=== PATIENT | female | born 1965 | race Caucasian/White ===

== ENCOUNTER 2019-01-03 16:02 | Inpatient (IN) ==
[2019-01-03] MEDS ORDERED: POTASSIUM CHLORIDE 40 MEQ in DEXTROSE 5% IN WATER 500 ML IV ONE (16:08)
--- NOTE | 2019-01-03 16:08 | Emergency Department Note ---
Recheck HPI - General Chief Complaint: Recheck/Abnormal Lab/Rx Stated Complaint: Low potassium Time Seen by Provider: 01/03/19 16:05 Source: patient Mode of arrival: ambulatory Limitations: no limitations - History of Present Illness HPI Narrative: 54-year-old female in ED as advised by ER staff to return due to serum potassium at 2.1. Patient was in earlier with concerns of possible gout flare, but did not want to wait for lab results and was discharged. Patient's potassium returned at 2.1 and she was found and requested to come back in for further treatment. Patient advises she has a poor diet and has multiple episodes of diarrhea. Patient states she is supposed to follow up with GI but is currently out of work and unable to come up with the money to see a specialist. Patient has had a colonoscopy in the past which was unremarkable. Patient states she does have a history of gout and does have flares from time to time. Patient has bilateral lower extremity pain and increased swelling which does cause her discomfort. This is why patient thought her gout was flared. 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 Patient was placed on antibiotic earlier today for bilateral cellulitis/ exacerbated contact dermatitis. complaint: abnormal lab Initial Visit For: cellulitis Returns Today for: called because of abnormal lab/test Description of Abnormal Result: 2.1 potassium Symptoms Since Prior Visit: no new symptoms Context: called for abnormal lab result Associated symptoms: none - Related Data Home Medications Medication Instructions Recorded Confirmed Allopurinol 01/03/19 Previous Rx's Medication Instructions Recorded Amoxicillin 500 mg PO Q12H 10 Days #20 tab 01/03/19 hydrOXYzine [Atarax] 25 mg PO TIDP PRN 10 Days #30 tab 01/03/19 Allergies Allergy/AdvReac Type Severity Reaction Status Date / Time ibuprofen Allergy Intermediate Vomiting Verified 01/03/19 16:02 Review of Systems All systems ED: reviewed and negative except as stated. Past Medical History - Past Medical History [facility] Narrative: All Active Problems Contact dermatitis (Acute) Medical history: Reports: other (gout) - Social History smoking status: Current every day smoker Physical Exam Limitations: no limitations General appearance: alert, in no apparent distress Head: atraumatic, normocephalic, normal inspection Eye: Present: normal appearance, PERRL, EOMI. Absent: conjunctival injection ENT: normal oropharynx, mucous membranes moist, TM's normal bilaterally, normal external ear exam Neck: Present: normal inspection. Absent: tenderness, lymphadenopathy Chest: Present: normal inspection, symmetric chest wall rise. Absent: tenderness Respiratory: Present: normal lung sounds bilaterally. Absent: respiratory distress, rales/crackles, wheezes Cardiovascular: Present: tachycardia. Absent: systolic murmur, diastolic murmur Abdominal: Present: soft, normal bowel sounds. Absent: distention, tenderness, guarding, rebound, rigidity Extremities: Present: tenderness (bilateral), pedal edema (2+ bilateral) Back: Present: normal inspection. Absent: tenderness, CVA tenderness (R), CVA tenderness (L) Neurological: Present: alert, oriented X3, normal gait Psychiatric: Present: normal affect, normal mood, tearful. Absent: depressed, agitated, anxious Skin: Present: warm, dry, intact, normal color. Absent: cool, diaphoretic Course Vital Signs Temperature 98.6 F 01/03/19 16:02 Pulse Rate 107 H 01/03/19 16:02 Respiratory Rate 18 01/03/19 16:02 Blood Pressure 113/62 01/03/19 16:02 Pulse Oximetry (%) 98 01/03/19 16:02 Temperature 98.9 F 01/03/19 21:55 Pulse Rate 105 H 01/03/19 21:55 Respiratory Rate 18 01/03/19 21:55 Blood Pressure 147/91 01/03/19 21:55 Pulse Oximetry (%) 98 01/03/19 21:55 Recheck/Abnormal Lab/Rx - MDM Narrative Medical decision making narrative: Patient was in earlier for possible gout flare and cellulitis bilateral hands. Patient did not want to wait for lab results and requested to be able to leave. After lab results returned patient had critical low potassium 2.1. Patient was phoned and advised she needed to return to ER for further treatment. WBC 3.7, RBC 2.85, Hgb 11.8, HCT 34.8, MCV 122.1, MCH 41.2, MCHC 33.8, RDW 16.8. Sodium 141, potassium 2.1, chloride 93, carbon dioxide 36, BUN 3, creatinine 0.3, uric acid 3.9, calcium 8.0, AST 78, ALT 42, alkaline phosphatase 204 Started 40 mEq K rider. Also provided patient 1 g Ancef for cellulitis. Consulted with who advised to provide patient an additional 150 MEq oral, recheck potassium after K-rider done and then if it is still below 3.0 Call back. Patient's follow-up KcL was 2.7, accepted patient onto the floor. - Lab Data Lab results reviewed: Yes I reviewed the patient's lab results. Lab Results 01/03/19 01/03/19 Range/Units 16:14 21:17 POC Hct 34.0 L 31.0 L (36.0-48.0) % POC Sodium 136 136 (133-145) mmol/L POC Potassium < 2.0 L* 2.7 L* (3.3-5.1) mmol/L POC Chloride 85 L 88 L (96-108) mmol/L POC Total CO2 34 H 40 H (22-30) mmol/L POC BUN < 3 L < 3 L (6-20) mg/dl POC Creatinine 0.6 0.5 L (0.6-1.1) mg/dl POC Glucose 104 90 (70-105) mg/dL POC WB Ioniz Calcium 0.98 L 0.92 L (1.16-1.32) mmol/L Magnesium 1.4 L (1.6-2.5) mg/dL NT-Pro-B Natriuret Pep 694.8 H (0-125) pg/ml - Radiology Data Radiology results reviewed: Yes I reviewed the patient's radiology results. Chest x-ray: INDICATION: Bilateral lower extremity edema TECHNIQUE: PA and lateral upright chest x-ray COMPARISON: None. FINDINGS: Lungs are negative. No parenchymal infiltrates. No pulmonary parenchymal mass. Heart size and vascularity are normal. No pulmonary edema or pulmonary congestion. Maddy and mediastinum are negative. There is no pleural fluid. There is severe degenerative disc disease in the lower thoracic spine. No thoracic compression fracture. There is a nonacute, healed left fifth rib fracture IMPRESSION: No acute abnormality Disposition Pt seen by BUILDING CARPENTER HELPER/PA only: No (Chin) Clinical Impression: Hypokalemia Disposition: Xfer As Inpt ([facility]) Condition: Fair Time of Disposition: 22:14
--- NOTE | 2019-01-03 16:54 | XRay Report ---
INDICATION: Bilateral lower extremity edema TECHNIQUE: PA and lateral upright chest x-ray COMPARISON: None. FINDINGS: Lungs are negative. No parenchymal infiltrates. No pulmonary parenchymal mass. Heart size and vascularity are normal. No pulmonary edema or pulmonary congestion. Maddy and mediastinum are negative. There is no pleural fluid. There is severe degenerative disc disease in the lower thoracic spine. No thoracic compression fracture. There is a nonacute, healed left fifth rib fracture IMPRESSION: No acute abnormality Interpreted and Authenticated by: Homer Dunaway 01/03/19
[2019-01-03 17:12] LABS: proBNP 694.8 pg/ml (0-125)
[2019-01-03] MEDS ORDERED: ceFAZolin 1 GM VIAL IV ONE (18:44)
[2019-01-03] MEDS ORDERED: POTASSIUM CHLORIDE 20 MEQ PACKET PO ONE (18:50)
[2019-01-03] MEDS ORDERED: ONDANSETRON 4 MG/2 ML VIAL IV ONE (20:29)
[2019-01-03] MEDS: HYDROmorphone 2 MG/ML VIAL IV PRN ×2 (20:50→22:58)
[2019-01-03] MEDS ORDERED: ACETAMINOPHEN 325 MG TABLET PO PRN (21:54)
[2019-01-03] MEDS ORDERED: ONDANSETRON 4 MG/2 ML VIAL IV PRN (21:54)
[2019-01-03] MEDS ORDERED: MAGNESIUM SULFATE 2 GM/50 ML BAG IV PRN (21:54)
[2019-01-03] MEDS ORDERED: POTASSIUM CHLORIDE 20 MEQ PACKET PO PRN (21:54)
[2019-01-03] MEDS ORDERED: ACETAMINOPHEN 650 MG/65 ML BOTTLE IV PRN (21:54)
[2019-01-03] MEDS ORDERED: POTASSIUM CHLORIDE 40 MEQ in DEXTROSE 5% IN WATER 500 ML IV PRN (21:54)
[2019-01-03 22:28] LABS: C-Reactive Protein < 0.3 mg/dl (0.0-0.8)
[2019-01-03] MEDS: HEPARIN 5,000 UNIT/ML VIAL SQ SCH (22:37)
[2019-01-03] MEDS: 0.9 % SODIUM CHLORIDE 10 ML SYRINGE IV SCH (22:37)
[2019-01-03] MEDS: LACTATED RINGERS 1,000 ML IV SCH (22:37)
[2019-01-03] MEDS ORDERED: diphenhydrAMINE 25 MG CAPSULE PO PRN (22:52)
[2019-01-03] MEDS ORDERED: diphenhydrAMINE 25 MG CAPSULE ONE (22:56)
--- NOTE | 2019-01-04 00:40 | Internal Med History&Physical ---
Medical - H&P: [facility] Patient information: Note initiated : 01/03/19 at 11:37 pm Service Date, if different from initiated Date: [] Patient: Heike Latif a 54 y/o F admitted on 01/03/19 for Low potassium. Chief Complaint: [] Chief complaint: diffuse extremity pain, persistent diarrhea, low potassium History of present illness: Ms. Latif is a 54 year old F with a history of gout who presents to the ER with concerns of acute gouty flare with symptoms of bilateral lower extremity pain that has worsened over the last 4-5 days. Patient was evaluated in the ER without significant findings to suggest an acute gouty flare. She had dizziness quantities coordination of bilateral upper extremity from mid forearm to the dorsum of hand. Initial biochemical profile revealed potassium of 2, magnesium 1.4. Patient does endorse to ongoing recurrent diarrhea for over 2 years for which she has been evaluated in the past with colonoscopy however she continues to experience 4-5 loose watery stools without associated pain or fever, tenesmus blood or mucus. In the process she has noted significant weight loss and has been experiencing significant pruritus along with skin desquamation. She denies fever chills, bloody stool, dysuria, headache photophobia. She cannot recollect in association with food. She denies recent changes in medications She denies hypersensitivity to food. She further denied fever chills, sweats, glandular swelling. Review of systems 10 point review systems was performed and is negative except as discussed above Medical - H&P: PMH Medical history: History of gout Weight loss Chronic diarrhea Degenerative joint disease Family history: reviewed and not pertinent Social history: Lives with her in [place] Smokes a pack a day Drinks daily Smoking status: Current every day smoker Medical - H&P: Meds Home Medications Medication Instructions Recorded Confirmed Type Allopurinol 01/03/19 History Amoxicillin 500 mg PO Q12H 10 Days #20 tab 01/03/19 01/03/19 Rx hydrOXYzine [Atarax] 25 mg PO TIDP PRN 10 Days #30 tab 01/03/19 01/03/19 Rx Allergies Allergy/AdvReac Type Severity Reaction Status Date / Time ibuprofen Allergy Intermediate Vomiting Verified 01/03/19 16:02 Medical - H&P: Exam - Constitutional Vitals: Temp Pulse Resp BP Pulse Ox 98.9 F 105 H 18 147/91 98 01/03/19 21:55 01/03/19 21:55 01/03/19 21:55 01/03/19 21:55 01/03/19 21:55 General appearance: thin Exam: Alert oriented head normocephalic Nose oral cavity dry No ear discharge No scleral icterus Neck no lymphadenopathy S1 and S2 irregular rhythm Diminished breath sounds bases Abdomen soft Bilateral upper extremity desquamatve lesions along with xerosis, no cyanosis clubbing or lymphedema Generalized dry skin Psych alert cooperative Neuro nonfocal Medical - H&P: Reslt - Labs CBC & Chem 7: 01/04/19 03:48 01/04/19 03:48 Medical - H&P: A/P (1) Hypokalemia Current visit: Yes Status: Acute * Hypokalemia-potassium at 2. Target 160 mEq replacement of potassium. * Hypomagnesemia-continue IV replacement * Chronic diarrhea -unclear etiology however in the setting of pruritus, malabsorption celiac/gluten hypersensitivity in differential. GI consult. I'll do a stool O&P Stool studies to rule out noninfectious etiologies including secretory versus osmotic diarrhea/malabsorption syndrome. * Symmetric bilateral lower severe pain / neuropathy possibly from underlying malabsorption. Start B12 * History of gout -no evidence of acute flare * Bilateral upper extremity these, the lesion suspect dermatitis versus scabies * Full code * Prophylaxis heparin Plan * Aggressive electrolyte replacement * Diarrhea workup/GI consult * Recheck BMP * B12 * Inpatient admission * Dietary consult/PT OT Medical - H&P: Qual - VTE Deep Vein Thrombosis/Pulmonary Embolism Present on Admission: No
[2019-01-04] MEDS: 0.9 % SODIUM CHLORIDE 10 ML SYRINGE IV SCH ×3 (05:09→20:27)
[2019-01-04 06:06] LABS: Mean Cell Volume 123.2 fL (80.0-100.0); Mean Corpuscular HGB Conc 32.8 g/dL (31.0-36.0); Platelet Count 247 K/mcL (140-440); RBC 2.46 M/mcL (4.00-5.20); Red Cell Distribution Width 16.9 % (11.5-14.5)
[2019-01-04 06:25] LABS: Anisocytosis 1+ (NONE SEEN); Eosinophils % (Manual) 1 % (0-7); Lymphocytes % 19 % (15-49); Macrocytosis 3+ (NONE SEEN); Monocytes % (Manual) 5 % (1-12); Platelet Estimate NORMAL (NORMAL); RBC Morphology ABNORM (NORMAL); Segmented Neutrophils % 75 % (38-78)
[2019-01-04 06:39] LABS: ALT/SGPT 38 U/l (0-40); Albumin 2.3 gm/dL (3.2-5.2); Albumin/Globulin Ratio 1.2 (1.0-2.3); Alkaline Phosphatase 167 U/L (39-117); Bilirubin,Direct < 0.2 mg/dL (0.0-0.3); Blood Urea Nitrogen 4 mg/dl (6-20); Gamma Glutamyl Transpeptidase 421 U/L (5-36); Uric Acid 3.7 mg/dL (2.5-8.0)
[2019-01-04] MEDS ORDERED: POTASSIUM CHLORIDE 20 MEQ/15 ML ML PO ONE (08:04)
--- NOTE | 2019-01-04 08:43 | Emergency Department Note ---
ED Note Addendum Note Addendum: His laboratory tests revealed marked hypokalemia patient admitted
[2019-01-04] MEDS ORDERED: MULTIVIT,THER IRON,CA,FA & MIN 1 TABLET PO SCH (09:00)
[2019-01-04] MEDS: LACTATED RINGERS 1,000 ML IV SCH (10:00)
--- NOTE | 2019-01-04 10:23 | Internal Med Progress Note ---
Medical - PN: Subj Patient information: Note initiated : 01/04/19 at 10:18 am Service Date, if different from initiated Date: [] Patient: Heike Latif a 54 y/o F admitted on 01/03/19 for Low potassium. Chief Complaint: [] Interval history: Ms. Latif is a 54 year old F with a history of gout who presents to the ER with concerns of acute gouty flare with symptoms of bilateral lower extremity pain that has worsened over the last 4-5 days. Patient was evaluated in the ER without significant findings to suggest an acute gouty flare. She had dizziness quantities coordination of bilateral upper extremity from mid forearm to the dorsum of hand. Initial biochemical profile revealed potassium of 2, magnesium 1.4. Patient does endorse to ongoing recurrent diarrhea for over 2 years for which she has been evaluated in the past with colonoscopy however she continues to experience 4-5 loose watery stools without associated pain or fever, tenesmus blood or mucus. In the process she has noted significant weight loss and has been experiencing significant pruritus along with skin desquamation. She denies fever chills, bloody stool, dysuria, headache photophobia. She cannot recollect in association with food. She denies recent changes in medications. She denies hypersensitivity to food. She further denied fever chills, sweats, glandular swelling. 01/04-patient doing better. Potassium improved to 3.1 status post 160 mEq replacement. Magnesium at 2. Diarrhea workup ongoing. GI consulted for chronic diarrhea evaluation. No overnight telemetry events. Dietary/nutrition consult for protein calorie malnutrition - Constitutional Vitals: Vital Signs Temp Pulse Resp BP Pulse Ox 98.3 F 105 H 20 106/65 94 01/04/19 07:59 01/03/19 21:55 01/04/19 07:59 01/04/19 07:59 01/04/19 07:59 Period Temp Pulse Resp BP Sys/Lowe Pulse Ox Last 24 Hr 98.3 F-99.0 F 97-109 12-24 106-156/62-117 92-99 Intake and Output 01/03/19 01/04/19 01/04/19 21:59 05:59 13:59 Intake Total 485 840 0074 Output Total 450 Balance 520 360 550 Weight 103 lb 8 oz 103 lb 8 oz Intake & Output: Intake & Output 0501/04/19 01/04/19 21:59 05:59 13:59 Intake Total 309 678 5793 Output Total 450 Balance 520 360 550 Weight 103 lb 8 oz 103 lb 8 oz Intake: IV 520 1000 Lactated Ringers 1,000 ml @ 100 1000 mls/hr IV .Q10H LION[facility] Rx#: [id number] Potassium Chloride 40 Meq In 520 Dextrose 5% in Water 500 ml @ 130 mls/hr IV ONCE ONE Rx#: [id number] Oral 360 Output: Void Amount 200 Stool 250 Other: Meal Sherbert/jello Percent of Meal Consumed 100% Stool Size Small Moderate Stool Color Brown Brown Stool Consistency Loose Liquid # Voids 1 General appearance: thin Exam: Alert oriented Nonlabored breathing No anxiety Skin exfoliation/xerosis Medical - PN: Obj Da - Labs CBC & Chem 7: 01/04/19 03:48 01/04/19 03:48 Labs: Abnormal Lab Results 01/04/19 01/04/19 01/03/19 03:48 03:48 21:17 RBC 2.46 L Hgb 10.0 L Hct 30.3 L POC Hct 31.0 L MCV 123.2 H MCH 40.5 H RDW 16.9 H RBC Morphology Abnorm A Anisocytosis 1+ A Macrocytosis 3+ A POC Potassium 2.7 L* Potassium 3.1 L POC Chloride 88 L Chloride 94 L POC Total CO2 40 H POC BUN < 3 L BUN 4 L Creatinine 0.4 L POC Creatinine 0.5 L Glucose 115 H Calcium 7.6 L POC WB Ioniz Calcium 0.92 L Phosphorus 2.5 L Magnesium GGT 421 H AST 74 H Alkaline Phosphatase 167 H Lactate Dehydrogenase 259 H NT-Pro-B Natriuret Pep Total Protein 4.2 L Albumin 2.3 L Globulin 1.9 L 01/03/19 16:14 RBC Hgb Hct POC Hct 34.0 L MCV MCH RDW RBC Morphology Anisocytosis Macrocytosis POC Potassium < 2.0 L* Potassium POC Chloride 85 L Chloride POC Total CO2 34 H POC BUN < 3 L BUN Creatinine POC Creatinine Glucose Calcium POC WB Ioniz Calcium 0.98 L Phosphorus Magnesium 1.4 L GGT AST Alkaline Phosphatase Lactate Dehydrogenase NT-Pro-B Natriuret Pep 694.8 H Total Protein Albumin Globulin Meds: Medications Acetaminophen (Tylenol) 650 mg PO Q4-6HP PRN PRN Reason: PAIN/FEVER > 101 Cyanocobalamin (Vitamin B12) 1,000 mcg IM DAILY [facility] Stop: 01/07/19 09:59 Diphenhydramine HCl (Benadryl) 25 mg PO Q4-6HP PRN PRN Reason: Allergic Symptoms Last Admin: 01/03/19 22:54 Dose: 25 mg Documented by: Heparin Sodium (Porcine) (Heparin) 5,000 unit SQ Q12 [facility] Last Admin: 01/03/19 22:37 Dose: 5,000 unit Documented by: Hydromorphone HCl (Dilaudid) 0.5 mg IV Q15MIN PRN PRN Reason: PAIN LEVEL > 6 Last Admin: 01/03/19 22:58 Dose: 0.5 mg Documented by: Potassium Chloride 40 meq/ (Dextrose) 520 mls @ 130 mls/hr IV UD PRN PRN Reason: K+ = or < 3.5 Magnesium Sulfate (Magnesium Sulfate) 2 gm in 50 mls @ 50 mls/hr IV UD PRN PRN Reason: MG = or < 1.7 Last Admin: 01/03/19 23:11 Dose: 50 mls/hr Documented by: Acetaminophen (Ofirmev) 650 mg in 65 mls @ 130 mls/hr IV Q6HP PRN PRN Reason: PAIN/FEVER > 101 Iron Carb/Multivit/[place]/Folic Acid (Multivitamin W/Minerals) 1 tab PO DAILY [facility] Mupirocin (Bactroban Oint 2%) 1 dose TOPICAL DAILY [facility] Ondansetron HCl (Zofran) 4 mg IV Q4-6HP PRN PRN Reason: Nausea And Vomiting Potassium Chloride (Klor-Con) 40 meq PO DAILYP PRN PRN Reason: K+ < 3.5 Sodium Chloride (Saline Flush) 10 ml IV Q8 [facility] Last Admin: 01/04/19 05:09 Dose: 10 ml Documented by: Medical - PN: A/P - Time Spent With Patient Total time spent is greater than 50% in coordination of care (as documented) at patient's floor/unit and/or counseling patient: 25 - 35 minutes (1) Hypokalemia Status: Acute Assessment and plan: * Chronic diarrhea -unclear etiology however in the setting of pruritus, malabsorption celiac in differential. GI consulted. Await stool studies to rule out noninfectious etiologies including secretory versus osmotic diarrhea/malabsorption syndrome. Check O&P. fecal leuks negative * Hypokalemia-potassium at 2. Target 160 mEq replacement of potassium. * Hypomagnesemia-continue IV replacement * Symmetric bilateral lower severe pain / neuropathy possibly from underlying malabsorption. Continue B12 * Protein calorie malnutrition-nutrition consult/dietary support * History of gout -no evidence of acute flare * Bilateral upper extremity erythematous lesions suspect dermatitis versus scabies * Full code * Prophylaxis heparin Plan * Aggressive electrolyte replacement * Continued diarrhea workup(stool osmolarity/OP/cultures/fecal fat/malabsorption tests) * Scabies scraping * Repeat BMP * IM B12 * Dietary consult/PT OT Current Visit: Yes Medical - PN: Qual - VTE Deep Vein Thrombosis/Pulmonary Embolism Present on Admission: No
[2019-01-04] MEDS: HEPARIN 5,000 UNIT/ML VIAL SQ SCH ×2 (10:45→20:27)
[2019-01-04] MEDS: CYANOCOBALAMIN 1,000 MCG/ML VIAL IM SCH (10:46)
[2019-01-04] MEDS: MUPIROCIN OINT 2% 22GM TOPICAL SCH (10:47)
[2019-01-04 14:40] LABS: Vitamin B12 > 2000 pg/ml (232-1245)
[2019-01-04] MEDS: VANCOMYCIN ORAL SOL 1,000 MG/10 ML BOTTLE PO SCH ×3 (15:49→20:26)
--- NOTE | 2019-01-04 16:28 | General Surgery Consult Note ---
History of Present Illness Patient information: Note initiated : 01/04/19 at 4:26 pm Service Date, if different from initiated Date: [] Patient: Heike Latif 54 y/o F admitted on 01/03/19 for Low potassium. Chief Complaint: [] Consult date: 01/04/19 Requesting physician: Dk Aguilar (skin wounds / lesions Hands) History of present illness: . I saw this lady along with Bety RN In Patient wound Nurse. Discussed patient's presentation and case with Dr. Aguilar. This frail lady was admitted vie ER with acute complaints of diarrhea, electrolyte abnormality ( LOW potassium and magnesium ) and h/o bloody stools. Noted to have exfoliative skin lesion on dorsal surface of both hands, between her fingers with pruritus. She has had chronic complaints of gout, malnutrition and dryness of skin. Medications and Allergies Home Medications Medication Instructions Recorded Confirmed Type RX: Amoxicillin 500 mg PO Q12H 10 Days #20 tab 01/03/19 01/03/19 Rx RX: hydrOXYzine [Atarax] 25 mg PO TIDP PRN 10 Days #30 tab 01/03/19 01/03/19 Rx Allopurinol [Zyloprim] 100 mg PO DAILY 01/04/19 01/04/19 History Allergies Allergy/AdvReac Type Severity Reaction Status Date / Time ibuprofen Allergy Intermediate Vomiting Verified 01/03/19 16:02 Exam Temp Pulse Resp BP Pulse Ox 98.4 F 105 H 20 133/77 95 01/04/19 16:00 01/03/19 21:55 01/04/19 16:00 01/04/19 16:00 01/04/19 16:00 - General physical appearance well developed, no distress, no pain, chronically ill - Eyes PERRL, normal ocular movement - ENT normal pinna, normal nares, normal mucosa, no hearing loss, no congestion - Head Head exam IM: Present: atraumatic, normocephalic - Neck no masses, trachea midline, no venous distension - Cardiovascular Cardiovascular exam IM: Present: normal rate and rhythm - Respiratory clear to auscultation - Abdomen Abdomen: Present: soft, non tender, bowel sounds - Integumentary Present: other (Dry skin, scratch ramos and chronic skin exfolaition and skin lesions in web spaces between fingers and knuckles on the dorsau of both hands.) - Neurologic Present: normal coordination, normal sensation, other (VERAS. Unremarkable non focal neurological examination. 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 Denies any contact with pets, rodents at home or work place. ), oriented to person, oriented to place, speech is normal Results - Labs 01/05/19 04:48 01/05/19 04:48 Abnormal lab results 01/03/19 01/03/19 01/04/19 Range/Units 16:14 21:17 03:48 RBC 2.46 L (4.00-5.20) M/mcL Hgb 10.0 L (12.0-15.0) g/dL Hct 30.3 L (36.0-48.0) % POC Hct 34.0 L 31.0 L (36.0-48.0) % MCV 123.2 H (80.0-100.0) fL MCH 40.5 H (26.0-34.0) pg RDW 16.9 H (11.5-14.5) % RBC Morphology Abnorm A (NORMAL) Anisocytosis 1+ A (NONE SEEN) Macrocytosis 3+ A (NONE SEEN) POC Potassium < 2.0 L* 2.7 L* (3.3-5.1) mmol/L Potassium (3.3-5.1) mmol/L POC Chloride 85 L 88 L (96-108) mmol/L Chloride (96-108) mmol/L POC Total CO2 34 H 40 H (22-30) mmol/L POC BUN < 3 L < 3 L (6-20) mg/dl BUN (6-20) mg/dl Creatinine (0.6-1.1) mg/dl POC Creatinine 0.5 L (0.6-1.1) mg/dl Glucose (70-105) mg/dL Calcium (8.6-10.4) mg/dl POC WB Ioniz Calcium 0.98 L 0.92 L (1.16-1.32) mmol/L Phosphorus (2.7-4.5) mg/dL Magnesium 1.4 L (1.6-2.5) mg/dL GGT (5-36) U/L AST (0-37) U/l Alkaline Phosphatase (39-117) U/L Lactate Dehydrogenase (94-250) U/L NT-Pro-B Natriuret Pep 694.8 H (0-125) pg/ml Total Protein (5.9-8.4) gm/dL Albumin (3.2-5.2) gm/dL Globulin (2.2-3.7) gm/dL Vitamin B12 (232-1245) pg/ml Folate (4.2-19.9) ng/mL 01/04/19 01/04/19 01/04/19 Range/Units 03:48 11:10 11:10 RBC (4.00-5.20) M/mcL Hgb (12.0-15.0) g/dL Hct (36.0-48.0) % POC Hct (36.0-48.0) % MCV (80.0-100.0) fL MCH (26.0-34.0) pg RDW (11.5-14.5) % RBC Morphology (NORMAL) Anisocytosis (NONE SEEN) Macrocytosis (NONE SEEN) POC Potassium (3.3-5.1) mmol/L Potassium 3.1 L (3.3-5.1) mmol/L POC Chloride (96-108) mmol/L Chloride 94 L (96-108) mmol/L POC Total CO2 (22-30) mmol/L POC BUN (6-20) mg/dl BUN 4 L (6-20) mg/dl Creatinine 0.4 L (0.6-1.1) mg/dl POC Creatinine (0.6-1.1) mg/dl Glucose 115 H (70-105) mg/dL Calcium 7.6 L (8.6-10.4) mg/dl POC WB Ioniz Calcium (1.16-1.32) mmol/L Phosphorus 2.5 L (2.7-4.5) mg/dL Magnesium (1.6-2.5) mg/dL GGT 421 H (5-36) U/L AST 74 H (0-37) U/l Alkaline Phosphatase 167 H (39-117) U/L Lactate Dehydrogenase 259 H (94-250) U/L NT-Pro-B Natriuret Pep (0-125) pg/ml Total Protein 4.2 L (5.9-8.4) gm/dL Albumin 2.3 L (3.2-5.2) gm/dL Globulin 1.9 L (2.2-3.7) gm/dL Vitamin B12 > 2000 H (232-1245) pg/ml Folate 3.2 L (4.2-19.9) ng/mL Diabetes panel 01/04/19 Range/Units 03:48 Sodium 135 (133-145) mmol/L Potassium 3.1 L (3.3-5.1) mmol/L Chloride 94 L (96-108) mmol/L Carbon Dioxide 28 (22-30) mmol/L BUN 4 L (6-20) mg/dl Creatinine 0.4 L (0.6-1.1) mg/dl Glucose 115 H (70-105) mg/dL Calcium 7.6 L (8.6-10.4) mg/dl AST 74 H (0-37) U/l ALT 38 (0-40) U/l Alkaline Phosphatase 167 H (39-117) U/L Total Protein 4.2 L (5.9-8.4) gm/dL Albumin 2.3 L (3.2-5.2) gm/dL Triglycerides 107 (<150) mg/dl Thyroid panel 01/04/19 Range/Units 11:10 TSH 1.92 (0.27-5.01) uIU/ml Calcium panel 01/04/19 Range/Units 03:48 Calcium 7.6 L (8.6-10.4) mg/dl Phosphorus 2.5 L (2.7-4.5) mg/dL Albumin 2.3 L (3.2-5.2) gm/dL Pituitary panel 01/04/19 01/04/19 Range/Units 03:48 11:10 Sodium 135 (133-145) mmol/L Potassium 3.1 L (3.3-5.1) mmol/L Chloride 94 L (96-108) mmol/L Carbon Dioxide 28 (22-30) mmol/L BUN 4 L (6-20) mg/dl Creatinine 0.4 L (0.6-1.1) mg/dl Glucose 115 H (70-105) mg/dL Calcium 7.6 L (8.6-10.4) mg/dl TSH 1.92 (0.27-5.01) uIU/ml Adrenal panel 01/04/19 Range/Units 03:48 Sodium 135 (133-145) mmol/L Potassium 3.1 L (3.3-5.1) mmol/L Chloride 94 L (96-108) mmol/L Carbon Dioxide 28 (22-30) mmol/L BUN 4 L (6-20) mg/dl Creatinine 0.4 L (0.6-1.1) mg/dl Glucose 115 H (70-105) mg/dL Calcium 7.6 L (8.6-10.4) mg/dl Total Bilirubin 0.7 (0.0-1.0) mg/dL AST 74 H (0-37) U/l ALT 38 (0-40) U/l Alkaline Phosphatase 167 H (39-117) U/L Total Protein 4.2 L (5.9-8.4) gm/dL Albumin 2.3 L (3.2-5.2) gm/dL All other labs normal. Assessment and Plan (1) Scabies exposure Given chronic symmetrical bilateral skin lesions between web spaces of fingers and both hands, WOULD want to rule out exposure to Scabies. Will obtain skin scrapings between fingers and await lab evaluation for mite infestation. Status: Chronic Priority: Low (2) Diarrhea Status: Chronic Priority: Medium Comment: Given LOW potassium and magnesium, will consider APUDOMAS in deiffrential diagnosis. AWAIT GI input. Qualifiers: Diarrhea type: unspecified type Qualified Code(s): R19.7 - Diarrhea, unspecified
--- NOTE | 2019-01-04 22:38 | Internal Medicine Consult Note ---
Medical - CN: HPI - Data of Consult Patient: new to practice Consult date: 01/04/19 Primary Care Provider: Rosina Wells Family Provider: LUC Arechiga - Consult Narrative Reason for consult: chronic diarrhea, weight loss, malabsorption History of present illness: Ms. 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 She began to suffer from chronic diarrhea in 2014, having up to 6 loose-watery crampy BMs daily with urgency, fecal incontinence and nocturnal stooling. She rarely passes solid formed stool and denies any blood with BMs. She has tenesmus and attempts to digitally disimpact her self or apply external pressure to induce BM. She complains of flushing after eating; she thought she might be having hot flashes as she has been amenorrheic for 6 months. She underwent screening colonoscopy by Dr. Tilley in 2014; unfortunately, no random colon biopsies were taken at that time, but it was otherwise unremarkable. She has not recently been on an antibiotic. She has not tried any treatments for her diarrhea other than dietary manipulation. Recent c difficile antigen is positive and toxin is negative; PCR is pending. Fecal calprotectin, culture, celiac serologies, O&P, culture with [facility] pending. She has a poor diet, which she attributes to her teeth recently being pulled, lack of finances from unemployment and food avoidance due to fears of diarrhea. She tells me her weight has been stable. She drinks 4 alcoholic beverages weekly. When I pointed out her labs are elevated in a pattern suggesting heavier alcohol use, she admitted she used to drink a 6 pack of beer daily, but quit 2 years ago. CC: Dk Jeff All systems: reviewed and no additional remarkable complaints except as stated (chronic numbness "like my toes are asleep" in feet bilaterally; "red, cracked skin" on soles of feet and dorsal surfaces of hands; history of gout) Medical - CN: PM Medical history: Gout. Alcoholic abuse. Surgical history: C section Pertinent family history: Mother: colon cancer, asthma COPD Father: Prostate CA Social history: unemployed medical aide. Limited finances as unemployment has run out. She has secure housing. Lives with who is disabled. Used to drink ETOH heavily (6pack daily) but quit 2 years ago. Smokes 1/3ppd. Denies recreational drug use. Functional capacity: independent ambulation Smoking status: Current every day smoker Have you smoked in the last 12 months: Yes Drug use: none Medical - CN: Meds Home Medications Medication Instructions Recorded Confirmed Type Amoxicillin 500 mg PO Q12H 10 Days #20 tab 01/03/19 01/03/19 Rx hydrOXYzine [Atarax] 25 mg PO TIDP PRN 10 Days #30 tab 01/03/19 01/03/19 Rx Allopurinol [Zyloprim] 100 mg PO DAILY 01/04/19 01/04/19 History Allergies Allergy/AdvReac Type Severity Reaction Status Date / Time ibuprofen Allergy Intermediate Vomiting Verified 01/03/19 16:02 Medical - CN: Exam - Constitutional Vitals: Temp Pulse Resp BP Pulse Ox 99.2 F H 105 H 16 127/75 94 01/04/19 20:43 01/03/19 21:55 01/04/19 20:43 01/04/19 20:43 01/04/19 20:43 General appearance: cooperative, disheveled, no acute distress, thin - Head Head exam: Present: atraumatic, normal inspection, normocephalic - Neck Neck exam: Present: normal inspection. Absent: thyromegaly - Respiratory Respiratory exam: Present: normal respiratory exam, CTAB. Absent: accessory muscle use, rhonchi, wheezes - Cardiovascular Cardiovascular exam: Present: normal rate and rhythm. Absent: clicks, diastolic murmur, gallop, rubs, systolic murmur - GI/Abdominal GI/Abdominal exam: Present: normal bowel sounds, soft. Absent: hernia, mass, organomegaly, tenderness - Expanded GI/Abdominal Exam GI/Abdominal exam: Absent: ascites, Romeo's sign - Extremities Exam Extremities exam: Present: pedal edema, Foot pink and warm. Absent: tenderness - Neurological Exam Neurological exam: Present: alert, oriented X3 Additional comments: could feel pencil tip on all 5 toes, but light touch subjectively diminished - Psychiatric Psychiatric exam: Present: normal affect, normal mood Additional comments: appropriately tearful during portions of interview describing her financial askew rdship - Skin Skin exam: Present: erythema Additional comments: peeling skin on fingers; dressing intact Medical - CN: Result - Labs CBC & Chem 7: 01/04/19 03:48 01/04/19 03:48 Labs: Short CBC 01/04/19 Range/Units 03:48 WBC 8.8 (4.5-11.0) K/mcL Hgb 10.0 L (12.0-15.0) g/dL Hct 30.3 L (36.0-48.0) % Plt Count 247 (140-440) K/mcL BMP 01/04/19 03:48 Sodium 135 Potassium 3.1 L Chloride 94 L Carbon Dioxide 28 BUN 4 L Creatinine 0.4 L Glucose 115 H Calcium 7.6 L Liver Function 01/04/19 Range/Units 03:48 Total Bilirubin 0.7 (0.0-1.0) mg/dL Direct Bilirubin < 0.2 (0.0-0.3) mg/dL GGT 421 H (5-36) U/L AST 74 H (0-37) U/l ALT 38 (0-40) U/l Alkaline Phosphatase 167 H (39-117) U/L Albumin 2.3 L (3.2-5.2) gm/dL Medical - CN: A/P (1) Diarrhea Status: Acute Assessment and plan: Will start cholestyramine as an adjunctive treatment for possible c difficile associated diarrhea and bile salt malabsorption. It would be reasonable to start c difficile treatment with vancomycin and discontinue if PCR returns negative; will defer this to Dr. Hope. In light of her flushing, will work up for carcinoid syndrome/neuroendocrine tumor, which could also explain her folate deficiency. Will order urine 5HIAA, calcitonin, serotonin, VIP. If the above work up is unrevealing, repeat colonoscopy with random colon biopsies and ileoscopy to check for Crohn's as well as EGD to assess for malabsorption (Whipple's, UGI Crohn's, Menetrier's, other protein losing enteropathy) would be indicated. I told the patient we would be happy to work with her financial situation and continue to follow her as an outpatient. (2) Folate deficiency Status: Acute Assessment and plan: Pt has multiple risk factors for folate deficiency: alcohol use, poor oral intake and severe eczematous rash. Will defer oral folate replacement to hospitalist. Discussed using liquid nutritional supplements to improve nutritional intake. Although these can sometimes exacerbate diarrhea, I'd prefer to try to control her diarrhea with cholestyramine (or Imodium if c difficile PCR returns negative) and improve her nutritional status. Will reassess her response to cholestyramine tomorrow.
[2019-01-05 05:43] LABS: Mean Cell Volume 122.8 fL (80.0-100.0); Mean Corpuscular HGB Conc 33.2 g/dL (31.0-36.0); Platelet Count 237 K/mcL (140-440); RBC 2.22 M/mcL (4.00-5.20); Red Cell Distribution Width 16.9 % (11.5-14.5)
[2019-01-05 05:49] LABS: ALT/SGPT 27 U/l (0-40); Albumin 2.2 gm/dL (3.2-5.2); Alkaline Phosphatase 155 U/L (39-117); Bilirubin,Direct < 0.2 mg/dL (0.0-0.3); Blood Urea Nitrogen 4 mg/dl (6-20); Gamma Glutamyl Transpeptidase 395 U/L (5-36); Uric Acid 3.3 mg/dL (2.5-8.0)
[2019-01-05 06:15] LABS: Anisocytosis 1+ (NONE SEEN); Eosinophils % (Manual) 2 % (0-7); Lymphocytes % 30 % (15-49); Macrocytosis 3+ (NONE SEEN); Monocytes % (Manual) 6 % (1-12); Platelet Estimate NORMAL (NORMAL); RBC Morphology ABNORM (NORMAL); Segmented Neutrophils % 62 % (38-78)
[2019-01-05] MEDS ORDERED: MAGNESIUM SULFATE 2 GM/50 ML BAG IV ONE (06:47)
[2019-01-05] MEDS ORDERED: CHOLESTYRAMINE/ASPARTAME 4 GM POWD.PACK PO SCH (07:00)
[2019-01-05] MEDS: 0.9 % SODIUM CHLORIDE 10 ML SYRINGE IV SCH ×3 (07:00→21:32)
[2019-01-05] MEDS: VANCOMYCIN ORAL SOL 1,000 MG/10 ML BOTTLE PO SCH ×4 (07:38→20:22)
[2019-01-05] MEDS: HEPARIN 5,000 UNIT/ML VIAL SQ SCH ×2 (08:51→20:22)
[2019-01-05] MEDS ORDERED: FOLIC ACID/VITAMIN B COMP W-C 1 TAB TABLET PO SCH (09:00)
[2019-01-05] MEDS: CYANOCOBALAMIN 1,000 MCG/ML VIAL IM SCH (09:00)
[2019-01-05] MEDS: MUPIROCIN OINT 2% 22GM TOPICAL SCH (09:00)
[2019-01-05] MEDS ORDERED: ACETAMINOPHEN 650 MG/65 ML BOTTLE IV PRN (09:22)
[2019-01-05] MEDS ORDERED: ACETAMINOPHEN 325 MG TABLET PO PRN (09:22)
[2019-01-05] MEDS ORDERED: ONDANSETRON 4 MG/2 ML VIAL IV PRN (09:22)
[2019-01-05] MEDS ORDERED: MAGNESIUM SULFATE 2 GM/50 ML BAG IV PRN (09:22)
[2019-01-05] MEDS ORDERED: POTASSIUM CHLORIDE 20 MEQ PACKET PO PRN (09:22)
[2019-01-05] MEDS ORDERED: POTASSIUM CHLORIDE 40 MEQ in DEXTROSE 5% IN WATER 500 ML IV PRN (09:22)
--- NOTE | 2019-01-05 10:21 | Internal Med Progress Note ---
Medical - PN: Subj Patient information: Note initiated : 01/05/19 at 10:19 am Service Date, if different from initiated Date: [] Patient: Heike Latif a 54 y/o F admitted on 01/03/19 for Low potassium. Chief Complaint: [] Interval history: Ms. Latif is a 54 year old F with a history of gout who presents to the ER with concerns of acute gouty flare with symptoms of bilateral lower extremity pain that has worsened over the last 4-5 days. Patient was evaluated in the ER without significant findings to suggest an acute gouty flare. She had dizziness quantities coordination of bilateral upper extremity from mid forearm to the dorsum of hand. Initial biochemical profile revealed potassium of 2, magnesium 1.4. Patient does endorse to ongoing recurrent diarrhea for over 2 years for which she has been evaluated in the past with colonoscopy however she continues to experience 4-5 loose watery stools without associated pain or fever, tenesmus blood or mucus. In the process she has noted significant weight loss and has been experiencing significant pruritus along with skin desquamation. She denies fever chills, bloody stool, dysuria, headache photophobia. She cannot recollect in association with food. She denies recent changes in medications. She denies hypersensitivity to food. She further denied fever chills, sweats, glandular swelling. 01/04-patient doing better. Potassium improved to 3.1 status post 160 mEq replacement. Magnesium at 2. Diarrhea workup ongoing. GI consulted for chronic diarrhea evaluation. No overnight telemetry events. Dietary/nutrition consult for protein calorie malnutrition 01/05 Patient seen and examined no acute overnight events, potassium now stable, patient's diarrhea improved no bowel movement since yesterday. C. difficile tested positive started on p.o. vancomycin. Appreciate GI input for diarrhea evaluation. Transfer to [facility] status. Wound care concerned that the rash on the hand could potentially be scabies, parasite identification sent if test positive we will start the patient on ivermectin. Pertinent ROS: Denies headache, dizziness Denies chest pain, palpitations Denies cough or shortness of breath Denies abdominal pain, nausea or vomiting. - Constitutional Vitals: Vital Signs Temp Pulse Resp BP Pulse Ox 98.7 F 105 H 20 116/64 90 01/05/19 07:47 01/03/19 21:55 01/05/19 07:47 01/05/19 07:47 01/05/19 07:47 Period Temp Pulse Resp BP Sys/Lowe Pulse Ox Last 24 Hr 98.4 F-99.2 F 16-20 115-133/64-77 90-97 Intake and Output 01/04/19 01/05/19 01/05/19 21:59 05:59 13:59 Intake Total 590 50 Output Total 175 200 Balance 590 -175 -150 Weight 102 lb 11.2 oz Intake & Output: Intake & Output 01/04/19 01/05/19 01/05/19 21:59 05:59 13:59 Intake Total 590 50 Output Total 175 200 Balance 590 -175 -150 Weight 102 lb 11.2 oz Intake: IV 50 50 Oral 540 Output: Void Amount 175 200 # of times incontinent of urine 0 Other: Meal Dinner Ice cream cupX2 Percent of Meal Consumed 75% 100% Feeding Ability Independent Urine Appearance Clear Urine Color Bright Yellow Bright Yellow Blood Tinged Urine Odor Normal # Voids 1 0 Exam: Constitutional; Afebrile, cooperative, alert, not in distress. Respiratory system: Air Entry equal on both sides, No crackles or wheezing, no rhonchi. CVS- Rate rhythm regular, S1,S2 heard, no gallop, no rub. Abdomen- Soft nontender abdomen, no organomegaly, no tenderness, no guarding or rigidity, DENTAL OFFICE RECEPTIONIST- AOOx3, moving all extremities, no gross focal deficit noted. Medical - PN: Obj Da - Labs CBC & Chem 7: 01/05/19 04:48 01/05/19 04:48 Labs: Abnormal Lab Results 01/05/19 01/05/19 01/04/19 04:48 04:48 11:10 RBC 2.22 L Hgb 9.1 L Hct 27.3 L POC Hct MCV 122.8 H MCH 40.8 H RDW 16.9 H RBC Morphology Abnorm A Anisocytosis 1+ A Macrocytosis 3+ A POC Potassium Potassium POC Chloride Chloride Carbon Dioxide 31 H POC Total CO2 POC BUN BUN 4 L Creatinine 0.3 L POC Creatinine Glucose Calcium 8.1 L POC WB Ioniz Calcium Phosphorus Magnesium GGT 395 H AST Alkaline Phosphatase 155 H Lactate Dehydrogenase NT-Pro-B Natriuret Pep Total Protein 4.4 L Albumin 2.2 L Globulin Vitamin B12 Folate 3.2 L 0501/04/19 01/04/19 11:10 03:48 03:48 RBC 2.46 L Hgb 10.0 L Hct 30.3 L POC Hct MCV 123.2 H MCH 40.5 H RDW 16.9 H RBC Morphology Abnorm A Anisocytosis 1+ A Macrocytosis 3+ A POC Potassium Potassium 3.1 L POC Chloride Chloride 94 L Carbon Dioxide POC Total CO2 POC BUN BUN 4 L Creatinine 0.4 L POC Creatinine Glucose 115 H Calcium 7.6 L POC WB Ioniz Calcium Phosphorus 2.5 L Magnesium GGT 421 H AST 74 H Alkaline Phosphatase 167 H Lactate Dehydrogenase 259 H NT-Pro-B Natriuret Pep Total Protein 4.2 L Albumin 2.3 L Globulin 1.9 L Vitamin B12 > 2000 H Folate 01/03/19 01/03/19 21:17 16:14 RBC Hgb Hct POC Hct 31.0 L 34.0 L MCV MCH RDW RBC Morphology Anisocytosis Macrocytosis POC Potassium 2.7 L* < 2.0 L* Potassium POC Chloride 88 L 85 L Chloride Carbon Dioxide POC Total CO2 40 H 34 H POC BUN < 3 L < 3 L BUN Creatinine POC Creatinine 0.5 L Glucose Calcium POC WB Ioniz Calcium 0.92 L 0.98 L Phosphorus Magnesium 1.4 L GGT AST Alkaline Phosphatase Lactate Dehydrogenase NT-Pro-B Natriuret Pep 694.8 H Total Protein Albumin Globulin Vitamin B12 Folate Meds: Medications Acetaminophen (Tylenol) 650 mg PO Q4-6HP PRN PRN Reason: PAIN/FEVER > 101 Cholestyramine Resin (Questran Light) 4 gm PO BID@0700,2000 [facility] Cyanocobalamin (Vitamin B12) 1,000 mcg IM DAILY [facility] Stop: 01/07/19 09:59 Diphenhydramine HCl (Benadryl) 25 mg PO Q4-6HP PRN PRN Reason: Allergic Symptoms Heparin Sodium (Porcine) (Heparin) 5,000 unit SQ Q12 [facility] Hydromorphone HCl (Dilaudid) 0.5 mg IV Q15MIN PRN PRN Reason: PAIN LEVEL > 6 Potassium Chloride 40 meq/ (Dextrose) 520 mls @ 130 mls/hr IV UD PRN PRN Reason: K+ = or < 3.5 Magnesium Sulfate (Magnesium Sulfate) 2 gm in 50 mls @ 50 mls/hr IV UD PRN PRN Reason: MG = or < 1.7 Acetaminophen (Ofirmev) 650 mg in 65 mls @ 130 mls/hr IV Q6HP PRN PRN Reason: PAIN/FEVER > 101 Multivit/Ca Carb/B Cmplx/FA/Prenat (Diatx) 1 tab PO DAILY [facility] Mupirocin (Bactroban Oint 2%) 1 dose TOPICAL DAILY [facility] Ondansetron HCl (Zofran) 4 mg IV Q4-6HP PRN PRN Reason: Nausea And Vomiting Potassium Chloride (Klor-Con) 40 meq PO DAILYP PRN PRN Reason: K+ < 3.5 Sodium Chloride (Saline Flush) 10 ml IV Q8 [facility] Vancomycin HCl (Vancomycin Oral Maria Elena) 250 mg PO QID [facility]; Protocol Medical - PN: A/P - Time Spent With Patient Total time spent is greater than 50% in coordination of care (as documented) at patient's floor/unit and/or counseling patient: - Narrative A/P Narrative: A/P Acute severe Hypokalemia -Due to loss in GI, poor oral intake, etoh related -replace, K stable nwo Rash on hand -parasite eval pending for scabies Diarrhea -Chr -appreciate gi input, workup pending -started on cholestyramine, Cdiff - started on po vancomycin. Severe malnutrition -low albumin 2.2 Elevated MCV/ Amemia likely nutritional -IM b12, for now -folate level low, on replacement DVT -heparin sq Full code Medical - PN: Qual - VTE Deep Vein Thrombosis/Pulmonary Embolism Present on Admission: No
--- NOTE | 2019-01-05 12:39 | General Surgery Progress Note ---
Subjective Narrative: Note initiated : 01/05/19 at 12:34 pm Service Date, if different from initiated Date: [] Patient: Heike Latif 54 y/o F admitted on 01/03/19 for Low potassium. Chief Complaint: [] Patient seen. Feels well. Diarrhea controlled. Has not had a BM since last night. GI input noted. Progress reviewed with Dr. Hope. Hospitalist physician. Objective Temp Pulse Resp BP Pulse Ox 98.1 F 105 H 20 114/77 96 01/05/19 12:00 01/03/19 21:55 01/05/19 12:00 01/05/19 12:00 01/05/19 12:00 AVSS, No changes in MARY. Soft abdomen. BS +. Skin lesion of both hands. Dry and scaly. prominent finger nails Scrapings sent to lab for MITE identification. Diarrhea stopped. K is stabilizing. GI on board. - Additional Data Intake & Output - Last 24 hours: Intake & Output 01/03/19 01/04/19 01/05/19 01/06/19 05:59 05:59 05:59 05:59 Intake Total 880 2190 530 Output Total 1025 300 Balance 880 1165 230 Weight 103 lb 8 oz 102 lb 11.2 oz - Labs 01/05/19 04:48 01/05/19 04:48 Diabetes panel 01/05/19 Range/Units 04:48 Sodium 140 (133-145) mmol/L Potassium 3.8 (3.3-5.1) mmol/L Chloride 100 (96-108) mmol/L Carbon Dioxide 31 H (22-30) mmol/L BUN 4 L (6-20) mg/dl Creatinine 0.3 L (0.6-1.1) mg/dl Glucose 95 (70-105) mg/dL Calcium 8.1 L (8.6-10.4) mg/dl AST 31 (0-37) U/l ALT 27 (0-40) U/l Alkaline Phosphatase 155 H (39-117) U/L Total Protein 4.4 L (5.9-8.4) gm/dL Albumin 2.2 L (3.2-5.2) gm/dL Triglycerides 92 (<150) mg/dl Thyroid panel 01/04/19 Range/Units 11:10 TSH 1.92 (0.27-5.01) uIU/ml Calcium panel 01/05/19 Range/Units 04:48 Calcium 8.1 L (8.6-10.4) mg/dl Phosphorus 3.4 (2.7-4.5) mg/dL Albumin 2.2 L (3.2-5.2) gm/dL Pituitary panel 01/04/19 01/05/19 Range/Units 11: 04:48 Sodium 140 (133-145) mmol/L Potassium 3.8 (3.3-5.1) mmol/L Chloride 100 (96-108) mmol/L Carbon Dioxide 31 H (22-30) mmol/L BUN 4 L (6-20) mg/dl Creatinine 0.3 L (0.6-1.1) mg/dl Glucose 95 (70-105) mg/dL Calcium 8.1 L (8.6-10.4) mg/dl TSH 1.92 (0.27-5.01) uIU/ml Adrenal panel 01/05/19 Range/Units 04:48 Sodium 140 (133-145) mmol/L Potassium 3.8 (3.3-5.1) mmol/L Chloride 100 (96-108) mmol/L Carbon Dioxide 31 H (22-30) mmol/L BUN 4 L (6-20) mg/dl Creatinine 0.3 L (0.6-1.1) mg/dl Glucose 95 (70-105) mg/dL Calcium 8.1 L (8.6-10.4) mg/dl Total Bilirubin 0.4 (0.0-1.0) mg/dL AST 31 (0-37) U/l ALT 27 (0-40) U/l Alkaline Phosphatase 155 H (39-117) U/L Total Protein 4.4 L (5.9-8.4) gm/dL Albumin 2.2 L (3.2-5.2) gm/dL Assessment and Plan (1) Scabies exposure Status: Chronic Current Visit: Yes (2) Diarrhea Problem details: Given LOW potassium and magnesium, will consider APUDOMAS in deiffrential diagnosis. AWAIT GI input. Status: Chronic Current Visit: Yes - Time Spent With Patient Total time spent is greater than 50% in coordination of care (as documented) at patient's floor/unit and/or counseling patient: Assessment: Slow progress. Skin scrapings between fingers AWAIT identification of scabies. Nothing further to add. Plan: Following patient. 25 - 35 minutes
[2019-01-05] MEDS: CHOLESTYRAMINE/ASPARTAME 4 GM POWD.PACK PO SCH (20:22)
[2019-01-05] MEDS: HYDROmorphone 2 MG/ML VIAL IV PRN (21:30)
[2019-01-05] MEDS: diphenhydrAMINE 25 MG CAPSULE PO PRN (21:30)
[2019-01-06] MEDS: 0.9 % SODIUM CHLORIDE 10 ML SYRINGE IV SCH ×4 (05:01→21:58)
[2019-01-06 05:41] LABS: Mean Cell Volume 123.6 fL (80.0-100.0); Mean Corpuscular HGB Conc 33.1 g/dL (31.0-36.0); Platelet Count 236 K/mcL (140-440); RBC 2.13 M/mcL (4.00-5.20)
[2019-01-06 06:03] LABS: ALT/SGPT 20 U/l (0-40); Albumin 2.3 gm/dL (3.2-5.2); Alkaline Phosphatase 150 U/L (39-117); Bilirubin,Direct < 0.2 mg/dL (0.0-0.3); Blood Urea Nitrogen 2 mg/dl (6-20); Gamma Glutamyl Transpeptidase 370 U/L (5-36); Uric Acid 3.4 mg/dL (2.5-8.0)
[2019-01-06 06:26] LABS: Anisocytosis 1+ (NONE SEEN); Band Neutrophils % 1 % (0-10); Eosinophils % (Manual) 2 % (0-7); Lymphocytes % 26 % (15-49); Macrocytosis 3+ (NONE SEEN); Monocytes % (Manual) 5 % (1-12); Platelet Estimate NORMAL (NORMAL); RBC Morphology ABNORM (NORMAL); Segmented Neutrophils % 66 % (38-78)
[2019-01-06] MEDS: CHOLESTYRAMINE/ASPARTAME 4 GM POWD.PACK PO SCH ×2 (07:40→21:56)
[2019-01-06] MEDS ORDERED: POTASSIUM CHLORIDE 20 MEQ PACKET PO ONE (08:57)
[2019-01-06] MEDS ORDERED: MAGNESIUM SULFATE 32.48 MEQ in DEXTROSE 5% IN WATER 100 ML IV ONE (08:57)
[2019-01-06] MEDS: VANCOMYCIN ORAL SOL 1,000 MG/10 ML BOTTLE PO SCH ×4 (09:13→21:57)
[2019-01-06] MEDS: FOLIC ACID/VITAMIN B COMP W-C 1 TAB TABLET PO SCH (09:13)
[2019-01-06] MEDS: HEPARIN 5,000 UNIT/ML VIAL SQ SCH ×2 (09:13→21:57)
[2019-01-06] MEDS: CYANOCOBALAMIN 1,000 MCG/ML VIAL IM SCH (09:14)
[2019-01-06] MEDS ORDERED: MAGNESIUM SULFATE 4 GM/100 ML BAG IV ONE (09:15)
[2019-01-06] MEDS: MUPIROCIN OINT 2% 22GM TOPICAL SCH (09:27)
[2019-01-06 10:27] LABS: Iron 21 mcg/dl (37-145); Transferrin % Saturation 15 % (15-50); Unsaturated Iron Binding 118 mcg/dL (112-346)
--- NOTE | 2019-01-06 10:27 | Internal Med Progress Note ---
Medical - PN: Subj Patient information: Note initiated : 01/06/19 at 10:25 am Service Date, if different from initiated Date: [] Patient: Heike Latif a 54 y/o F admitted on 01/03/19 for Low potassium. Chief Complaint: [] Interval history: Ms. Latif is a 54 year old F with a history of gout who presents to the ER with concerns of acute gouty flare with symptoms of bilateral lower extremity pain that has worsened over the last 4-5 days. Patient was evaluated in the ER without significant findings to suggest an acute gouty flare. She had dizziness quantities coordination of bilateral upper extremity from mid forearm to the dorsum of hand. Initial biochemical profile revealed potassium of 2, magnesium 1.4. Patient does endorse to ongoing recurrent diarrhea for over 2 years for which she has been evaluated in the past with colonoscopy however she continues to experience 4-5 loose watery stools without associated pain or fever, tenesmus blood or mucus. In the process she has noted significant weight loss and has been experiencing significant pruritus along with skin desquamation. She denies fever chills, bloody stool, dysuria, headache photophobia. She cannot recollect in association with food. She denies recent changes in medications. She denies hypersensitivity to food. She further denied fever chills, sweats, glandular swelling. 01/04-patient doing better. Potassium improved to 3.1 status post 160 mEq replacement. Magnesium at 2. Diarrhea workup ongoing. GI consulted for chronic diarrhea evaluation. No overnight telemetry events. Dietary/nutrition consult for protein calorie malnutrition 01/05 Patient seen and examined no acute overnight events, potassium now stable, patient's diarrhea improved no bowel movement since yesterday. C. difficile tested positive started on p.o. vancomycin. Appreciate GI input for diarrhea evaluation. Transfer to [facility] status. Wound care concerned that the rash on the hand could potentially be scabies, parasite identification sent if test positive we will start the patient on ivermectin. 01/06 Patient seen examined, no acute issues, labs show hb is trending down slowly, no jerry reported pt diarrhea has resolved tolerating po well anticipate d/c in AM Pertinent ROS: Denies headache, dizziness Denies chest pain, palpitations Denies cough or shortness of breath Denies abdominal pain, nausea or vomiting. - Constitutional Vitals: Vital Signs Temp Pulse Resp BP Pulse Ox 98.2 F 105 H 18 124/86 93 01/06/19 07:52 01/06/19 07:52 01/06/19 07:52 01/06/19 07:52 01/06/19 07:52 Period Temp Pulse Resp BP Sys/Lowe Pulse Ox Last 24 Hr 97.6 F-98.3 F 104-111 16-20 113-133/71-86 93-98 Intake and Output 01/05/19 01/06/19 01/06/19 21:59 05:59 13:59 Intake Total 500 570 Output Total 900 150 Balance -400 420 Weight 107 lb Intake & Output: Intake & Output 01/05/19 01/06/19 01/06/19 21:59 05:59 13:59 Intake Total 500 570 Output Total 900 150 Balance -400 420 Weight 107 lb Intake: Oral 500 570 Output: Void Amount 900 150 Other: Meal Dinner Breakfast Percent of Meal Consumed 0% 100% Feeding Ability Assist with Tray Set Up Independent Urine Appearance Clear Clear Urine Color Pale Pale Urine Odor Normal Stool Size Small Stool Consistency Soft Formed # Bowel Movements 0 Exam: Constitutional; Afebrile, cooperative, alert, not in distress. Respiratory system: Air Entry equal on both sides, No crackles or wheezing, no rhonchi. CVS- Rate rhythm regular, S1,S2 heard, no gallop, no rub. Abdomen- Soft nontender abdomen, no organomegaly, no tenderness, no guarding or rigidity, [employer]- AOOx3, moving all extremities, no gross focal deficit noted. Edema +++ lower extremity Medical - PN: Obj Da - Labs CBC & Chem 7: 01/06/19 04:36 01/06/19 04:36 Labs: Abnormal Lab Results 01/06/19 01/06/19 01/05/19 04:36 04:36 04:48 RBC 2.13 L Hgb 8.7 L Hct 26.4 L POC Hct MCV 123.6 H MCH 40.9 H RDW 17.0 H RBC Morphology Abnorm A Anisocytosis 1+ A Macrocytosis 3+ A POC Potassium Potassium 3.1 L POC Chloride Chloride Carbon Dioxide 31 H 31 H POC Total CO2 POC BUN BUN 2 L 4 L Creatinine 0.2 L 0.3 L POC Creatinine Glucose Calcium 8.1 L 8.1 L POC WB Ioniz Calcium Phosphorus Magnesium GGT 370 H 395 H AST Alkaline Phosphatase 150 H 155 H Lactate Dehydrogenase NT-Pro-B Natriuret Pep Total Protein 4.5 L 4.4 L Albumin 2.3 L 2.2 L Globulin Vitamin B12 Folate 01/05/19 01/04/19 01/04/19 04:48 11:10 11:10 RBC 2.22 L Hgb 9.1 L Hct 27.3 L POC Hct MCV 122.8 H MCH 40.8 H RDW 16.9 H RBC Morphology Abnorm A Anisocytosis 1+ A Macrocytosis 3+ A POC Potassium Potassium POC Chloride Chloride Carbon Dioxide POC Total CO2 POC BUN BUN Creatinine POC Creatinine Glucose Calcium POC WB Ioniz Calcium Phosphorus Magnesium GGT AST Alkaline Phosphatase Lactate Dehydrogenase NT-Pro-B Natriuret Pep Total Protein Albumin Globulin Vitamin B12 > 2000 H Folate 3.2 L 01/04/19 01/04/19 01/03/19 03:48 03:48 21:17 RBC 2.46 L Hgb 10.0 L Hct 30.3 L POC Hct 31.0 L MCV 123.2 H MCH 40.5 H RDW 16.9 H RBC Morphology Abnorm A Anisocytosis 1+ A Macrocytosis 3+ A POC Potassium 2.7 L* Potassium 3.1 L POC Chloride 88 L Chloride 94 L Carbon Dioxide POC Total CO2 40 H POC BUN < 3 L BUN 4 L Creatinine 0.4 L POC Creatinine 0.5 L Glucose 115 H Calcium 7.6 L POC WB Ioniz Calcium 0.92 L Phosphorus 2.5 L Magnesium GGT 421 H AST 74 H Alkaline Phosphatase 167 H Lactate Dehydrogenase 259 H NT-Pro-B Natriuret Pep Total Protein 4.2 L Albumin 2.3 L Globulin 1.9 L Vitamin B12 Folate 01/03/19 16:14 RBC Hgb Hct POC Hct 34.0 L MCV MCH RDW RBC Morphology Anisocytosis Macrocytosis POC Potassium < 2.0 L* Potassium POC Chloride 85 L Chloride Carbon Dioxide POC Total CO2 34 H POC BUN < 3 L BUN Creatinine POC Creatinine Glucose Calcium POC WB Ioniz Calcium 0.98 L Phosphorus Magnesium 1.4 L GGT AST Alkaline Phosphatase Lactate Dehydrogenase NT-Pro-B Natriuret Pep 694.8 H Total Protein Albumin Globulin Vitamin B12 Folate Meds: Medications Acetaminophen (Tylenol) 650 mg PO Q4-6HP PRN PRN Reason: PAIN/FEVER > 101 Cholestyramine Resin (Questran Light) 4 gm PO BID@0700,2000 [facility] Last Admin: 01/06/19 07:40 Dose: 4 gm Documented by: Cyanocobalamin (Vitamin B12) 1,000 mcg IM DAILY [facility] Stop: 01/07/19 09:59 Last Admin: 01/06/19 09:14 Dose: 1,000 mcg Documented by: Diphenhydramine HCl (Benadryl) 25 mg PO Q4-6HP PRN PRN Reason: Allergic Symptoms Last Admin: 01/05/19 21:30 Dose: 25 mg Documented by: Heparin Sodium (Porcine) (Heparin) 5,000 unit SQ Q12 [facility] Last Admin: 01/06/19 09:13 Dose: 5,000 unit Documented by: Hydromorphone HCl (Dilaudid) 0.5 mg IV Q15MIN PRN PRN Reason: PAIN LEVEL > 6 Last Admin: 01/05/19 21:30 Dose: 0.5 mg Documented by: Potassium Chloride 40 meq/ (Dextrose) 520 mls @ 130 mls/hr IV UD PRN PRN Reason: K+ = or < 3.5 Magnesium Sulfate (Magnesium Sulfate) 2 gm in 50 mls @ 50 mls/hr IV UD PRN PRN Reason: MG = or < 1.7 Acetaminophen (Ofirmev) 650 mg in 65 mls @ 130 mls/hr IV Q6HP PRN PRN Reason: PAIN/FEVER > 101 Multivit/Ca Carb/B Cmplx/FA/Prenat (Diatx) 1 tab PO DAILY [facility] Last Admin: 01/06/19 09:13 Dose: 1 tab Documented by: Mupirocin (Bactroban Oint 2%) 1 dose TOPICAL DAILY [facility] Last Admin: 01/06/19 09:27 Dose: 1 dose Documented by: Ondansetron HCl (Zofran) 4 mg IV Q4-6HP PRN PRN Reason: Nausea And Vomiting Potassium Chloride (Klor-Con) 40 meq PO DAILYP PRN PRN Reason: K+ < 3.5 Sodium Chloride (Saline Flush) 10 ml IV Q8 [facility] Last Admin: 01/06/19 07:42 Dose: 10 ml Documented by: Vancomycin HCl (Vancomycin Oral Maria Elena) 250 mg PO QID [facility]; Protocol Last Admin: 01/06/19 09:13 Dose: 2.5 ml Documented by: Medical - PN: A/P - Time Spent With Patient Total time spent is greater than 50% in coordination of care (as documented) at patient's floor/unit and/or counseling patient: - Narrative A/P Narrative: A/P Acute severe Hypokalemia -Due to loss in GI, poor oral intake, etoh related -replace, Hypomagnesmie -replace Rash on hand -neg for scabies -management per wound care, Diarrhea -Chr -appreciate gi input, workup pending -started on cholestyramine, -resolved Cdiff - started on po vancomycin. -complete 2 week course Severe malnutrition -low albumin 2.2 -likely contributing to edema Elevated MCV/ Amemia likely nutritional -IM b12, for now -folate level low, on replacement -check iron studies, consider IV iron and oral iron replacement if needed DVT -heparin sq Full code anticipate d/c in AM Medical - PN: Qual - VTE Deep Vein Thrombosis/Pulmonary Embolism Present on Admission: No
[2019-01-06 10:36] LABS: Ferritin 210.5 ng/ml (13-150)
[2019-01-06] MEDS: diphenhydrAMINE 25 MG CAPSULE PO PRN ×2 (11:15→21:56)
[2019-01-06] MEDS: FERROUS SULFATE 325 MG TABLET PO SCH (11:16)
--- NOTE | 2019-01-06 15:38 | General Surgery Progress Note ---
Subjective Narrative: Note initiated : 01/06/19 at 3:35 pm Service Date, if different from initiated Date: [] Patient: Heike Latif 54 y/o F admitted on 01/03/19 for Low potassium. Chief Complaint: [] Patient doing well. Denies N/V/D. Keeping food down. WIL Soft stool. Objective Temp Pulse Resp BP Pulse Ox 97.6 F 105 H 16 97/66 96 01/06/19 11:18 01/06/19 11:18 01/06/19 11:18 01/06/19 11:18 01/06/19 11:18 AVSS. No changes MARY. Inflammation dermatitis both hands improving. NEGATIVE for scabies. C.Diff colitis : Responding to treatment. - Additional Data Intake & Output - Last 24 hours: Intake & Output 01/04/19 01/05/19 01/06/19 01/07/19 05:59 05:59 05:59 05:59 Intake Total 880 2190 1150 970 Output Total 1025 1300 350 Balance 880 1165 -150 620 Weight 103 lb 8 oz 102 lb 11.2 oz 107 lb - Labs 01/06/19 04:36 01/06/19 04:36 Diabetes panel 01/06/19 Range/Units 04:36 Sodium 140 (133-145) mmol/L Potassium 3.1 L (3.3-5.1) mmol/L Chloride 101 (96-108) mmol/L Carbon Dioxide 31 H (22-30) mmol/L BUN 2 L (6-20) mg/dl Creatinine 0.2 L (0.6-1.1) mg/dl Glucose 93 (70-105) mg/dL Calcium 8.1 L (8.6-10.4) mg/dl AST 25 (0-37) U/l ALT 20 (0-40) U/l Alkaline Phosphatase 150 H (39-117) U/L Total Protein 4.5 L (5.9-8.4) gm/dL Albumin 2.3 L (3.2-5.2) gm/dL Triglycerides 94 (<150) mg/dl Calcium panel 01/06/19 Range/Units 04:36 Calcium 8.1 L (8.6-10.4) mg/dl Phosphorus 4.0 (2.7-4.5) mg/dL Albumin 2.3 L (3.2-5.2) gm/dL Pituitary panel 01/06/19 Range/Units 04:36 Sodium 140 (133-145) mmol/L Potassium 3.1 L (3.3-5.1) mmol/L Chloride 101 (96-108) mmol/L Carbon Dioxide 31 H (22-30) mmol/L BUN 2 L (6-20) mg/dl Creatinine 0.2 L (0.6-1.1) mg/dl Glucose 93 (70-105) mg/dL Calcium 8.1 L (8.6-10.4) mg/dl Adrenal panel 01/06/19 Range/Units 04:36 Sodium 140 (133-145) mmol/L Potassium 3.1 L (3.3-5.1) mmol/L Chloride 101 (96-108) mmol/L Carbon Dioxide 31 H (22-30) mmol/L BUN 2 L (6-20) mg/dl Creatinine 0.2 L (0.6-1.1) mg/dl Glucose 93 (70-105) mg/dL Calcium 8.1 L (8.6-10.4) mg/dl Total Bilirubin 0.2 (0.0-1.0) mg/dL AST 25 (0-37) U/l ALT 20 (0-40) U/l Alkaline Phosphatase 150 H (39-117) U/L Total Protein 4.5 L (5.9-8.4) gm/dL Albumin 2.3 L (3.2-5.2) gm/dL Assessment and Plan (1) Scabies exposure Status: Chronic Current Visit: Yes (2) Diarrhea Problem details: Given LOW potassium and magnesium, will consider APUDOMAS in deiffrential diagnosis. AWAIT GI input. Status: Chronic Current Visit: Yes - Narrative A/P Narrative: Assessment: Progressing well. Discharge plans noted. Plan: F/U at wound clinic in 1 week. - Time Spent With Patient Total time spent is greater than 50% in coordination of care (as documented) at patient's floor/unit and/or counseling patient: less than 15 minutes
[2019-01-06] MEDS: HYDROmorphone 2 MG/ML VIAL IV PRN (21:20)
[2019-01-07 05:09] LABS: Mean Cell Volume 123.2 fL (80.0-100.0); Mean Corpuscular HGB Conc 33.1 g/dL (31.0-36.0); Platelet Count 255 K/mcL (140-440); RBC 2.04 M/mcL (4.00-5.20); Red Cell Distribution Width 17.2 % (11.5-14.5)
[2019-01-07] MEDS: HYDROmorphone 2 MG/ML VIAL IV PRN (05:30)
[2019-01-07] MEDS: 0.9 % SODIUM CHLORIDE 10 ML SYRINGE IV SCH ×2 (05:39→12:19)
[2019-01-07 05:52] LABS: Anisocytosis 1+ (NONE SEEN); Band Neutrophils % 1 % (0-10); Eosinophils % (Manual) 1 % (0-7); Lymphocytes % 28 % (15-49); Macrocytosis 3+ (NONE SEEN); Monocytes % (Manual) 7 % (1-12); Platelet Estimate NORMAL (NORMAL); RBC Morphology ABNORM (NORMAL); Segmented Neutrophils % 63 % (38-78)
[2019-01-07 05:59] LABS: ALT/SGPT 18 U/l (0-40); Albumin 2.5 gm/dL (3.2-5.2); Albumin/Globulin Ratio 1.1 (1.0-2.3); Alkaline Phosphatase 140 U/L (39-117); Bilirubin,Direct < 0.2 mg/dL (0.0-0.3); Blood Urea Nitrogen 2 mg/dl (6-20); Gamma Glutamyl Transpeptidase 357 U/L (5-36)
[2019-01-07] MEDS ORDERED: POTASSIUM CHLORIDE 20 MEQ PACKET PO ONE (07:47)
[2019-01-07] MEDS: CHOLESTYRAMINE/ASPARTAME 4 GM POWD.PACK PO SCH (07:48)
[2019-01-07] MEDS: VANCOMYCIN ORAL SOL 1,000 MG/10 ML BOTTLE PO SCH ×3 (08:51→16:34)
[2019-01-07] MEDS: FERROUS SULFATE 325 MG TABLET PO SCH (08:51)
[2019-01-07] MEDS: HEPARIN 5,000 UNIT/ML VIAL SQ SCH (08:51)
[2019-01-07] MEDS: FOLIC ACID/VITAMIN B COMP W-C 1 TAB TABLET PO SCH (08:51)
[2019-01-07] MEDS: CYANOCOBALAMIN 1,000 MCG/ML VIAL IM SCH (08:52)
[2019-01-07] MEDS: MUPIROCIN OINT 2% 22GM TOPICAL SCH (08:52)
[2019-01-07] MEDS ORDERED: FUROSEMIDE 20 MG TABLET PO SCH (09:00)
[2019-01-07 10:42] LABS: Appearance,Urine CLEAR; Bacteria,Urine FEW /hpf (0); Bilirubin,Urine NEG (NEG); Color,Urine YELLOW; Glucose,Urine (UA) NEGATIVE (NEG); Leukocyte Esterase,Urine NEG /uL (NEG); Mucus,Urine FEW /hpf (0); Protein,Urine NEG (NEG); Specific Gravity,Urine 1.009 (1.000-1.035); Urine Blood NEG mg/dL (<0.03); Urine RBC 0 /hpf (0-1); Urine Squamous Epithelial Cell 1 /hpf (0-4); Urine WBC 3 /hpf (0-4); Urobilinogen,Urine NEG (NEG)
[2019-01-07] MEDS ORDERED: IOPAMIDOL 100 ML BOTTLE IV ONE (12:40)
--- NOTE | 2019-01-07 14:38 | Cat Scan Report ---
CLINICAL INFORMATION: Abdominal pain and distention COMPARISON: None. TECHNIQUE: Following enteric contrast, 80 cc of Isovue-300 were injected intravenously, and 60 seconds later, 0.625 mm helical slices were obtained from the mid heart through the subtrochanteric regions. Following reconstruction, 2.5 mm sagittal, coronal and axial reformatted images were processed and reviewed at bone, lung and soft tissue windows. Five minutes later, 0.625 mm helical slices were obtained from the mid heart through the kidneys and viewed at soft tissue windows.The exam was performed using radiation dose optimization techniques including, but not limited to, automated exposure control, adjustment of the mA and/or kV according to patient size and use of iterative reconstruction technique. FINDINGS: Small right pleural effusion and subsegmental atelectasis in the adjacent posterior right lower lobe appreciated. The visualized heart is grossly normal. Images through the abdomen show mild fatty change within the liver. No gross morphologic evidence of cirrhosis no focal hepatic lesions. The gallbladder is contracted and there is moderate wall thickening, enhancement and pericholecystic fluid. No stones identified. This may indicate acalculous cholecystitis. Intrahepatic and common bile duct normal caliber CBD is 5 mm.The pancreas, both kidneys, adrenal glands, spleen and aorta, including aortic branches are normal in size configuration and attenuation without focal lesion. Images through the pelvis show slightly retroverted uterus is normal in size: 7.4 x 3 cm. A 2.8 cm simple cyst of the left ovary and a 1.8 cm cyst noted in the right ovary are noted. No evidence of ascites, free air or adenopathy. Stomach, small and large bowel show mild symmetric dilatation suggesting ileus. The appendix is unremarkable. Bone windows show no focal osseous lesions. L3-4 moderate broad disc protrusion results in moderate central canal and mild bilateral IV foraminal narrowing. Moderate subcutaneous edema is seen throughout the abdomen and pelvis. IMPRESSION: Diffuse wall thickening and enhancement of the gallbladder with pericholecystic fluid suggesting acalculous cholecystitis. Intrahepatic and common bile ducts are normal. Consider: Ultrasound as a confirmatory test No morphologic evidence for cirrhosis. There is only mild hepatic fatty change.. No evidence of ascites or portal hypertension. Small right pleural effusion and subsegmental atelectasis posterior right lower lobe Interpreted and Authenticated by: Homer Gilmore 01/07/19
--- NOTE | 2019-01-07 15:09 | Discharge Summary ---
Medical - DS: Prov Patient information: Note initiated : 01/07/19 at 3:05 pm Service Date, if different from initiated Date: [] Patient: Heike Latif 54 y/o F admitted on 01/03/19 for Low potassium. Chief Complaint: [] Date of admission: 01/03/19 21:51 Discharge date: 01/07/19 Primary care physician: Rosina Wells Consults: 01/03/19 18:33 Consult to Physician [CONS] Stat Comment: Consulting Provider: Dk Aguilar Reason For Exam: Physician to Consult 01/04/19 09:01 Consult to Physician [CONS] Routine Comment: Consulting Provider: Jalil Mccrary Reason For Exam: Physician to Consult Consult to Physician [CONS] Routine Comment: wounds to hands Consulting Provider: Wilver Jacob Reason For Exam: Physician to Consult 01/04/19 09:45 Consult to Physician [CONS] Routine Comment: Consulting Provider: Claire Klein Reason For Exam: Physician to Consult Discharging clinician: Arely Hope Medical - DS: Meds - Discharge Medications Prescriptions: Cholestyramine/Aspartame [Questran Light] 4 gm PO BID@699,1999 #60 powd.pack Cyanocobalamin (Vitamin B-12) [Vitamin B12] 2,500 mcg PO DAILY #100 tab.chew Ferrous Sulfate [Iron] 325 mg PO DAILY #100 tab Folic Acid/Vitamin B Comp W-C [Diatx] 1 tab PO DAILY #100 tab Furosemide [Lasix] 20 mg PO DAILY #30 tab Potassium Chloride [Kdur] 20 [facility] [place] [facility] tab Vancomycin Oral Maria Elena 250 mg PO QID #11 bottle Active and Home Medications: Home Medications Amoxicillin 500 mg PO Q12H 10 Days #20 tab 01/03/19 [Rx Confirmed 01/03/19 Last Taken Unknown] hydrOXYzine [Atarax] 25 mg PO TIDP PRN 10 Days #30 tab 01/03/19 [Rx Confirmed 01/03/19 Last Taken Unknown] Allopurinol [Zyloprim] 100 mg PO DAILY 01/04/19 [History Confirmed 01/04/19 Last Taken Unknown] Cholestyramine/Aspartame [Questran Light] 4 gm PO BID@ #60 powd.pack 01/07/19 [Rx Last Taken Unknown] Cyanocobalamin (Vitamin B-12) [Vitamin B12] 2,500 mcg PO DAILY #100 tab.chew 01/07/19 [Rx Last Taken Unknown] Ferrous Sulfate [Iron] 325 mg PO DAILY #100 tab 01/07/19 [Rx Last Taken Unknown] Folic Acid/Vitamin B Comp W-C [Diatx] 1 tab PO DAILY #100 tab 01/07/19 [Rx Last Taken Unknown] Furosemide [Lasix] 20 mg PO DAILY #30 tab 01/07/19 [Rx Last Taken Unknown] Potassium Chloride [Kdur] 20 meq PO QAC #90 tab 01/07/19 [Rx Last Taken Unknown] Vancomycin Oral Maria Elena 250 mg PO QID #11 bottle 01/07/19 [Rx Last Taken Unknown] Medical - DS: Hosp Hospital course: Ms. Latif is a 54 year old F with a history of gout who presents to the ER with concerns of acute gouty flare with symptoms of bilateral lower extremity pain that has worsened over the last 4-5 days. Patient was evaluated in the ER without significant findings to suggest an acute gouty flare. She had dizziness quantities coordination of bilateral upper extremity from mid forearm to the dorsum of hand. Initial biochemical profile revealed potassium of 2, magnesium 1.4. Patient does endorse to ongoing recurrent diarrhea for over 2 years for which she has been evaluated in the past with colonoscopy however she continues to experience 4-5 loose watery stools without associated pain or fever, tenesmus blood or mucus. In the process she has noted significant weight loss and has been experiencing significant pruritus along with skin desquamation. She denies fever chills, bloody stool, dysuria, headache photophobia. She cannot recollect in association with food. She denies recent changes in medications. She denies hypersensitivity to food. She further denied fever chills, sweats, glandular swelling. 01/04-patient doing better. Potassium improved to 3.1 status post 160 mEq replacement. Magnesium at 2. Diarrhea workup ongoing. GI consulted for chronic diarrhea evaluation. No overnight telemetry events. Dietary/nutrition consult for protein calorie malnutrition 01/05 Patient seen and examined no acute overnight events, potassium now stable, patient's diarrhea improved no bowel movement since yesterday. C. difficile tested positive started on p.o. vancomycin. Appreciate GI input for diarrhea evaluation. Transfer to [facility] status. Wound care concerned that the rash on the hand could potentially be scabies, parasite identification sent if test positive we will start the patient on ivermectin. 01/06 Patient seen examined, no acute issues, labs show hb is trending down slowly, no jerry reported pt diarrhea has resolved tolerating po well anticipate d/c in AM 01/07 patient seen examined, doing well, feels belly is a bit distended, and her edema still there, CT abdomen and pelvis is neg for any ascitis, neg for cirrhosis. It did show a thickened gall bladder wall concerning for acalculoous cholecystitis. The patient has no abdominal pain, she was able to tolerate po diet well,breakfast and lunch, clinically doing quite well, and has normal wbc count, afebrile Acalculous cholecystitis picture on CT is likely from patients low albumin, she does have significant pitting edema some third spacing which should improve with improving nutrition. The patient has been advised to go to the ER if she has any fever chills or any GI symptoms In summary patient presented to the hospital with symptoms of diarrhea weakness, noted to have significant hypokalemia, she is had chronic diarrhea, and low albumin. Patient tested positive for C. difficile colitis. She was evaluated by GI, she was started on p.o. vancomycin as well as cholestyramine. Her diarrhea has responded well. She is able to tolerate p.o. diet well. Her electrolytes have been repleted, she will be discharged on some potassium supplements. She does have low hemoglobin elevated MCV and is being discharged on B12 supplements multivitamins folic acid and iron supplement. She will follow-up with GI as an outpatient for further evaluation. Her rash in the hand should improve with improving nutritional status. Negative for scabies She does have edema in the lower extremities, her urinalysis is negative for any significant proteinuria, and abdomen pelvis CT is negative for cirrhosis the patient does have a history of alcohol use. Her edema is likely from low albumin, she has been started on low-dose of Lasix for now which can be discontinued once edema resolves Discharge diagnosis: Diarrhea, cdiff, malnutrition - Time Spent with Patient Total time spent providing and/or coordinating discharge services: Greater than 30 minutes Medical - DS: Exam - Constitutional Vitals: Vital Signs Temp Pulse Resp BP Pulse Ox 01/07/19 12:00 97.1 F 108 H 18 122/80 97 01/07/19 07:07 98.2 F 95 H 18 120/78 97 01/07/19 03:50 97.9 F 108 H 18 118/76 96 01/06/19 23:12 97.9 F 114 H 16 120/69 96 01/06/19 19:28 98.2 F 101 H 16 115/77 98 01/06/19 15:40 98.4 F 107 H 16 97/63 97 Intake and Output 01/07/19 01/07/19 01/07/19 05:59 13:59 21:59 Intake Total 600 Output Total 40 Balance 560 Intake: Oral 600 Output: Void Amount 40 Other: Meal Breakfast Percent of Meal Consumed 100% Feeding Ability Independent Stool Size Small Stool Color Brown Stool Consistency Soft Formed # Voids 1 # Bowel Movements 1 Weight 107 lb Patient Weight 01/08/19 05:59 Weight 107 lb Additional comments: Respiratory system: Air Entry equal on both sides, No crackles or wheezing, no rhonchi. CVS- Rate rhythm regular, S1,S2 heard, no gallop, no rub. Abdomen- Soft nontender abdomen, no organomegaly, no tenderness, no guarding or rigidity, Romeo sign is negative [employer]- AOOx3, moving all extremities, no gross focal deficit noted. Medical - DS: Data Labs on day of discharge: Labs from last 24 hours 01/07/19 01/07/19 01/07/19 09:30 03:38 03:38 WBC 6.8 RBC 2.04 L Hgb 8.3 L Hct 25.1 L MCV 123.2 H MCH 40.7 H MCHC 33.1 RDW 17.2 H Plt Count 255 MPV 8.2 Total Counted 100 Seg Neutrophils % 63 Band Neutrophils % 1 Lymphocytes % 28 Monocytes % (Manual) 7 Eosinophils % (Manual) 1 Platelet Estimate Normal RBC Morphology Abnorm A Polychromasia 1+ A Anisocytosis 1+ A Macrocytosis 3+ A Sodium 139 Potassium 3.6 Chloride 101 Carbon Dioxide 29 Anion Gap 9.0 BUN 2 L Creatinine 0.3 L GFR Calculation 132 Glucose 89 Uric Acid 4.0 Calcium 7.9 L Phosphorus 4.3 Magnesium 1.9 Total Bilirubin 0.2 Direct Bilirubin < 0.2 GGT 357 H AST 21 ALT 18 Alkaline Phosphatase 140 H Lactate Dehydrogenase 208 Total Protein 4.7 L Albumin 2.5 L Globulin 2.2 Albumin/Globulin Ratio 1.1 Triglycerides 111 Urine Color Yellow Urine Appearance Clear Urine pH 7.0 Ur Specific [place] 1.009 Urine Protein Neg Urine Glucose (UA) Negative Urine Ketones Neg Urine Occult Blood Neg Urine Nitrate Neg Urine Bilirubin Neg Urine Urobilinogen Neg Ur Leukocyte Esterase Neg Urine RBC 0 Urine WBC 3 Ur Squamous Epith Cells 1 Urine Bacteria Few A Urine Mucus Few Ur Culture Indicated? Yes Miscellaneous Test 01/04/19 10:05 WBC RBC Hgb Hct MCV MCH MCHC RDW Plt Count MPV Total Counted Seg Neutrophils % Band Neutrophils % Lymphocytes % Monocytes % (Manual) Eosinophils % (Manual) Platelet Estimate RBC Morphology Polychromasia Anisocytosis Macrocytosis Sodium Potassium Chloride Carbon Dioxide Anion Gap BUN Creatinine GFR Calculation Glucose Uric Acid Calcium Phosphorus Magnesium Total Bilirubin Direct Bilirubin GGT AST ALT Alkaline Phosphatase Lactate Dehydrogenase Total Protein Albumin Globulin Albumin/Globulin Ratio Triglycerides Urine Color Urine Appearance Urine pH Ur Specific [place] Urine Protein Urine Glucose (UA) Urine Ketones Urine Occult Blood Urine Nitrate Urine Bilirubin Urine Urobilinogen Ur Leukocyte Esterase Urine RBC Urine WBC Ur Squamous Epith Cells Urine Bacteria Urine Mucus Ur Culture Indicated? Miscellaneous Test Medical - DS: A/P - Patient/Caregiver Discharge Instructions Activity: increase activity as tolerated Diet: Low Sodium (2gm) Additional Instructions: Follow-up with Claire Klein in 1 week. Follow-up with PCP in 1 week. Follow up with wound care clinic If you develop any fever chills abdominal pain nausea vomiting please go back to the emergency room for evaluation of her gallbladder. Please take your medications as prescribed Prescriptions: Cholestyramine/Aspartame [Questran Light] 4 gm PO BID@0700,1999 #60 powd.pack Cyanocobalamin (Vitamin B-12) [Vitamin B12] 2,500 mcg PO DAILY #100 tab.chew Ferrous Sulfate [Iron] 325 mg PO DAILY #100 tab Folic Acid/Vitamin B Comp W-C [Diatx] 1 tab PO DAILY #100 tab Furosemide [Lasix] 20 mg PO DAILY #30 tab Potassium Chloride [Kdur] 20 meq PO QAMCC #90 tab Vancomycin Oral Maria Elena 250 mg PO QID #11 bottle Other Amb Orders: Wound Care Instructions Location: None Selected - Follow up Plan Follow up with: Wilver Jacob MD [Physician] - 01/14/19 1:00 pm (check in 15 minutes early. Bring your Insurance cards, Valid ID, and a Current Medication list.) Rosina Wells ARNP [Primary Care Provider] - Disposition: Home, Self-Care Prognosis: Fair Rehab Potential: Fair I certify that the patient requires SNF services: No Overall status at discharge: patient is progressing back to baseline Medical - DS: Qual - VTE Deep Vein Thrombosis/Pulmonary Embolism Present on Admission: No
[2019-01-08 06:28] LABS: TTG IGA AB 1 U/mL; TTG IGG AB < 1 U/mL
[2019-01-11 10:55] LABS: Serotonin 83 ng/mL (56-244)
[2019-01-16 15:37] LABS: Creatinine Urine 0.25
== END 2019-01-07 16:50 | disposition home or self-care (01) | DRG 371 ==
LOC: ED 16:02 → ICU 21:50 → MEDSUR 01-05 14:52
PROVIDERS: ADMIT Internal Medicine; ATTEND Internal Medicine